=== PATIENT | male | born 1975 | race Caucasian/White ===

== ENCOUNTER 2021-04-18 12:42 | Emergency (ER) | payer SELFPAY ==
[2021-04-18 14:17] LABS: Absolute Lymphocytes (CBC) 0.7 K/uL (0.7-4.9); Basophils % 0.3 % (0-1.3); Hematocrit 38.4 % (39.6-49.0); Lymphocytes % 6.3 % (15.3-44.8); MPV 7.6 fL (7.6-11.3); RBC Red Blood Cell Count 3.89 M/uL (4.33-5.43)
[2021-04-18 14:20] LABS: Protime INR 1.02
[2021-04-18 14:48] LABS: ALT/SGPT 32 U/L (12-78); Albumin 3.9 g/dL (3.4-5.0); Alkaline Phosphatase 71 U/L (45-117); BUN Blood Urea Nitrogen 8 mg/dL (7-18); Bicarbonate 23 mmol/L (21-32); Bilirubin Direct < 0.1 mg/dL (0-0.2); Bilirubin Total 0.3 mg/dL (0.2-1.0); Creatine Phosphokinase 104 U/L (39-308); Glucose Level 121 mg/dL (74-106); Sodium Level 139 mmol/L (136-145); Troponin I < 0.02 ng/mL (0.0-0.045)
[2021-04-18 14:49] LABS: AST/SGOT 28 U/L (15-37); Potassium 3.9 mmol/L (3.5-5.1)
[2021-04-18 15:27] LABS: Platelet Estimate ADEQ; White Blood Cell Scan OK (OK)
[2021-04-18 15:28] LABS: Blood Morphology Comment NOT SEEN (NOT SEEN)
[2021-04-18] MEDS ORDERED: NA CHLORIDE 0.9% 1,000 ML ONE (16:18)
--- NOTE | 2021-04-18 18:15 | ER ---
Nurse's Notes [facility] Name: Phu Marshall Age: 45 yrs Sex: Male : 1975 Arrival Date: 04/18/2021 Time: 12:43 Bed 28 Private MD: Diagnosis: Other psychoactive substance abuse Presentation: 04/18 12:51 Chief complaint: EMS states: was found sitting outside [facility], pt stated he iw took ten codeine pills because the sign maker were making him anxious. Coronavirus screen: At this time, the client does not indicate any symptoms associated with coronavirus-19. Ebola Screen: Patient negative for fever greater than or equal to 101.5 degrees Fahrenheit, and additional compatible Ebola Virus Disease symptoms Patient denies exposure to infectious person. Patient denies travel to an Ebola-affected area in the 21 days before illness onset. No symptoms or risks identified at this time. Initial Sepsis Screen: Does the patient meet any 2 criteria? No. Patient's initial sepsis screen is negative. Does the patient have a suspected source of infection? No. Patient's initial sepsis screen is negative. Risk Assessment: Do you want to hurt yourself or someone else? Patient reports no desire to harm self or others. Onset of symptoms was April 18, 2021. 12:51 Method Of Arrival: EMS: [facility] iw 12:51 Acuity: LAWRENCE 3 iw Triage Assessment: 18:00 General: Appears in no apparent distress. Behavior is calm, cooperative. iw Historical: - Allergies: 12:53 No Known Allergies; iw - Home Meds: 12:53 None [Active]; iw - PMHx: 12:53 None; iw - PSHx: 12:53 None; iw - Immunization history:: Adult Immunizations unknown. - Social history:: Smoking status: unknown. Screenin:42 Abuse screen: Denies threats or abuse. Denies injuries from another. Nutritional iw screening: No deficits noted. Tuberculosis screening: No symptoms or risk factors identified. Fall Risk None identified. Assessment: 13:00 General: Appears in no apparent distress. Pain: Denies pain. Neuro: Level of iw Consciousness is obeys commands, Oriented to person, place, time, Moves all extremities. Full function. Cardiovascular: Patient's skin is warm and dry. Respiratory: Respiratory effort is even, unlabored, Respiratory pattern is regular. GI: Abdomen is flat, non-distended. Derm: Skin is intact, is healthy with good turgor. Musculoskeletal: Range of motion: intact in all extremities. 13:49 Reassessment: Patient appears in no apparent distress at this time. iw 18:42 Reassessment: Patient appears in no apparent distress at this time. Patient and/or iw family updated on plan of care and expected duration. Pain level reassessed. Patient is alert, oriented x 3, equal unlabored respirations, skin warm/dry/pink. Patient states feeling better. Patient states symptoms have improved. Vital Signs: 13:48 BP 151 / 101; Pulse 79; Resp 16; Pulse Ox 97% on R/A; iw 18:43 BP 128 / 79; Pulse 67; Resp 16; Pulse Ox 98% on R/A; iw ED Course: 12:43 Patient arrived in ED. iw 12:51 No provider procedures requiring assistance completed. Maintain EMS IV. Dressing iw intact. Good blood return noted. Site clean \T\ dry. Gauge \T\ site: 18 gauge, LAC. 12:52 Triage completed. iw 12:53 Arm band placed on. iw 13:00 Patient has correct armband on for positive identification. iw 13:42 Ainsley Leslie RN is Primary Nurse. iw 13:43 Juan Cancino PA is PHCP. cp 13:43 Juan Caal MD is Attending Physician. cp 18:42 IV discontinued, intact, bleeding controlled, No redness/swelling at site. Pressure iw dressing applied. Administered Medications: 14:00 Drug: NS 0.9% 1000 ml Route: IV; Rate: 1 bolus; Site: left antecubital; iw 15:00 Follow up: IV Status: Completed infusion iw 15:33 Drug: NS 0.9% 1000 ml Route: IV; Rate: 1 bolus; Site: left antecubital; iw Outcome: 18:15 Discharge ordered by . cp 18:42 Discharged to home ambulatory. iw 18:42 Condition: good 18:42 Discharge instructions given to patient, Instructed on discharge instructions, follow up and referral plans. Demonstrated understanding of instructions, follow-up care. 18:43 Patient left the ED. iw Signatures: Ainsley Leslie RN RN iw Juan Cancino PA PA cp
--- NOTE | 2021-04-18 18:15 | EDPHYS ---
Physician Documentation [facility] Name: Phu Marshall Age: 45 yrs Sex: Male : 1975 Arrival Date: 04/18/2021 Time: 12:43 Bed 28 Private MD: ED Physician Juan Caal HPI: 04/18 13:45 This 45 yrs old Male presents to ER via EMS with complaints of Heat Exposure, cp Drug Abuse. 13:45 The patient presents to the emergency department after a known overdose, that was cp intentional. Context: Method: the patient has a confirmed or suspected ingestion, codeine, Time: the patient's OD/poisoning occurred at an unknown time. 13:45 Associated signs and symptoms: Pertinent positives: decreased level of consciousness. cp 13:45 Patient reports ingesting approximately 10 tablets of tylenol with codeine today cp because he became nervous by the presence of police. Historical: - Allergies: 12:53 No Known Allergies; iw - Home Meds: 12:53 None [Active]; iw - PMHx: 12:53 None; iw - PSHx: 12:53 None; iw - Immunization history:: Adult Immunizations unknown. - Social history:: Smoking status: unknown. ROS: 13:50 Constitutional: Negative for body aches, chills, fever, poor PO intake. cp 13:50 Eyes: Negative for injury, pain, redness, and discharge. cp 13:50 Cardiovascular: Negative for chest pain. 13:50 Respiratory: Negative for cough, shortness of breath, wheezing. 13:50 Abdomen/GI: Negative for abdominal pain, nausea, vomiting, and diarrhea. 13:50 Neuro: Negative for altered mental status, dizziness, headache, loss of consciousness, syncope, weakness. 13:50 All other systems are negative. Exam: 13:52 Head/Face: Normocephalic, atraumatic. cp 13:52 Constitutional: The patient appears in no acute distress, alert, awake, non-diaphoretic, non-toxic, well developed, well nourished. 13:52 Eyes: Periorbital structures: appear normal, Pupils: equal, round, and reactive to cp light and accomodation, Extraocular movements: intact throughout, Conjunctiva: normal, no exudate, no injection, Sclera: no appreciated abnormality, Lids and lashes: appear normal, bilaterally. 13:52 ENT: External ear(s): are unremarkable, Ear canal(s): are normal, clear, TM's: dullness, bilaterally, Nose: is normal, Mouth: Lips: moist, Oral mucosa: moist, Posterior pharynx: Airway: no evidence of obstruction, patent. 13:52 Neck: ROM/movement: is normal, is supple, no meningismus, no nuchal rigidity. 13:52 Chest/axilla: Inspection: normal, Palpation: is normal, no crepitus, no tenderness. 13:52 Cardiovascular: Rate: normal, Rhythm: regular, Edema: is not appreciated, JVD: is not appreciated. 13:52 Respiratory: the patient does not display signs of respiratory distress, Respirations: normal, no use of accessory muscles, no retractions, labored breathing, is not present, Breath sounds: are clear throughout, no decreased breath sounds. 13:52 Abdomen/GI: Inspection: abdomen appears normal, Palpation: abdomen is soft and non-tender, in all quadrants. 13:52 Neuro: Orientation: to person, place \T\ time. Mentation: able to follow commands, slow to respond, Motor: moves all fours, strength is normal. 14:47 ECG was reviewed by the Attending Physician. Vital Signs: 13:48 BP 151 / 101; Pulse 79; Resp 16; Pulse Ox 97% on R/A; iw 18:43 BP 128 / 79; Pulse 67; Resp 16; Pulse Ox 98% on R/A; iw MDM: 13:44 Patient medically screened. socorro 14:00 Differential diagnosis: over medication, intracranial hemorrhage. cp 18:15 Data reviewed: vital signs, nurses notes, lab test result(s), EKG, and as a result, I cp will discharge patient. 18:15 Counseling: I had a detailed discussion with the patient and/or guardian regarding: the cp historical points, exam findings, and any diagnostic results supporting the discharge/admit diagnosis, lab results, to return to the emergency department if symptoms worsen or persist or if there are any questions or concerns that arise at home. Response to treatment: the patient's symptoms have markedly improved after treatment, and as a result, I will discharge patient. 04/18 13:43 Order name: Acetaminophen; Complete Time: 14:58 cp 04/18 13:43 Order name: Basic Metabolic Panel; Complete Time: 14:58 cp 04/18 15:37 Interpretation: Normal except: GLUC 121; GFR 64. cp 04/18 13:43 Order name: CBC with Diff; Complete Time: 15:35 cp 04/18 15:37 Interpretation: Normal except: WBC 11.20; RBC 3.89; HGB 13.2; HCT 38.4; FAM% 86.8; LYM% cp 6.3; NEUT A 9.7. 04/18 13:43 Order name: ETOH Level; Complete Time: 14:58 cp 04/18 13:43 Order name: Hepatic Function; Complete Time: 14:58 cp 04/18 15:37 Interpretation: Normal except: GLOB 4.1; A/G 1.0. cp 04/18 13:43 Order name: PT-INR; Complete Time: 14:58 cp 04/18 13:43 Order name: Ptt, Activated; Complete Time: 14:58 cp 04/18 13:43 Order name: Salicylate cp 04/18 13:43 Order name: CK; Complete Time: 14:58 cp 04/18 13:43 Order name: Troponin I; Complete Time: 14:58 cp 04/18 15:28 Order name: CBC Smear Scan; Complete Time: 15:35 EDMS 04/18 13:43 Order name: EKG; Complete Time: 13:44 cp 04/18 13:43 Order name: EKG - Nurse/Tech; Complete Time: 14:41 cp 04/18 13:43 Order name: IV Saline Lock; Complete Time: 14:27 cp 04/18 13:43 Order name: Labs collected and sent; Complete Time: 14:27 cp 04/18 13:43 Order name: Urine Dipstick-Ancillary (obtain specimen); Complete Time: 08:33 cp 04/18 17:52 Order name: Diet Regular; Complete Time: 17:52 cp EC:47 Rate is 71 beats/min. Rhythm is regular. SD interval is normal. QRS interval is normal. cp QT interval is normal. T waves are Inverted in leads aVR, V2. Interpreted by me. Reviewed by me. Administered Medications: 14:00 Drug: NS 0.9% 1000 ml Route: IV; Rate: 1 bolus; Site: left antecubital; iw 15:00 Follow up: IV Status: Completed infusion iw 15:33 Drug: NS 0.9% 1000 ml Route: IV; Rate: 1 bolus; Site: left antecubital; iw Disposition: 04/18/21 18:15 Discharged to Home. Impression: Other psychoactive substance abuse. - Condition is Stable. - Discharge Instructions: Drug Overdose. - Medication Reconciliation Form, Thank You Letter, Antibiotic Education, Prescription Opioid Use form. - Follow up: Private Physician; When: 1 - 2 days; Reason: Recheck today's complaints. - Problem is new. - Symptoms have improved. Addendum: 04/19/2021 21:10 Co-signature as Attending Physician, Juan Caal MD I agree with the assessment and c flores plan of care. Signatures: Dispatcher [employer] EDJuan Leon MD MD cha Williams, Irene, RN RN iw Juan Cancino PA PA cp Corrections: (The following items were deleted from the chart) 04/18 14:27 13:43 Suicide Screening ([place]) ordered. cp iw 18:42 16:35 Chávez ordered. cp iw 18:43 18:15 04/18/2021 18:15 Discharged to Home. Impression: Other psychoactive substance iw abuse. Condition is Stable. Forms are Medication Reconciliation Form, Thank You Letter, Antibiotic Education, Prescription Opioid Use. Follow up: Private Physician; When: 1 - 2 days; Reason: Recheck today's complaints. Problem is new. Symptoms have improved. 04/19 15:30 09:22 Constitutional: Negative for body aches, chills, fever, poor PO intake, cp cp :24 07:22 Eyes: Negative for injury, pain, redness, and discharge, cp cp :24 07:22 ENT: Negative for ear pain, sore throat, difficulty swallowing, difficulty cp handling secretions, cp : 09:22 Cardiovascular: Positive for chest pain, Negative for edema, palpitations, cp cp : 09:22 Respiratory: Negative for cough, shortness of breath, wheezing, cp cp : 09:22 Abdomen/GI: Negative for abdominal pain, nausea, vomiting, and diarrhea, cp cp : 09:22 Back: Negative for radiated pain, cp cp : 09:22 Neuro: Negative for altered mental status, headache, numbness, weakness, cp cp :30 09:22 Skin: Negative for cellulitis, rash, cp cp 15:30 09:22 All other systems are negative, cp cp 15:31 15:30 Constitutional: Negative for cp cp 15:34 09:22 Constitutional: The patient appears in no acute distress, alert, awake, cp non-diaphoretic, non-toxic, well developed, well nourished, cp 15:34 09:22 Head/Face: Normocephalic, atraumatic. cp cp 15:34 09:22 Eyes: Periorbital structures: appear normal, Pupils: equal, round, and reactive cp to light and accomodation, Extraocular movements: intact throughout, Conjunctiva: normal, Sclera: Lids and lashes: appear normal, bilaterally, cp 15:34 09:22 ENT: External ear(s): are unremarkable, Nose: is normal, Mouth: Lips: moist, Oral cp mucosa: moist, Posterior pharynx: Airway: no evidence of obstruction, patent, cp 15: 09:22 Neck: ROM/movement: pain, is not appreciated, limited range of motion, is not cp appreciated, cp 15: 09:22 Chest/axilla: Inspection: normal, Palpation: is normal, no crepitus, no cp tenderness, cp 15:34 09:22 Cardiovascular: Rate: normal, Rhythm: regular, Edema: is not appreciated, JVD: is cp not appreciated, cp 15: 09:22 Respiratory: the patient does not display signs of respiratory distress, cp Respirations: normal, no use of accessory muscles, no retractions, labored breathing, is not present, Breath sounds: are clear throughout, no decreased breath sounds, no stridor, no wheezing, cp 15:34 09:22 Abdomen/GI: Inspection: abdomen appears normal, Palpation: abdomen is soft and cp non-tender, in all quadrants, cp 15: 09:22 Back: pain, is absent, ROM is normal, cp cp 15:34 09:22 Neuro: Orientation: to person, place \T\ time. Mentation: is normal, Motor: moves cp all fours, strength is normal, cp
[2021-04-18 18:49] VITALS: BP 128/79; O2SAT 98
--- NOTE | 2021-04-19 06:58 | EKG ---
Test Date: 2021-04-18 Test Time: 14:40:13 Mercury Washer: TABITHA MEASUREMENT RESULTS: Intervals: Rate: 71 CA: 172 QRSD: 96 QT: 404 QTc: 439 [place]: P: 64 CA: 172 QRS: -9 T: 42 INTERPRETIVE STATEMENTS: Normal sinus rhythm with sinus arrhythmia Possible Left atrial enlargement Borderline ECG No previous ECG available for comparison Electronically Signed On 04-19-21 06:56:23 CDT by Moses Bass
== END 2021-04-18 18:43 | disposition home or self-care (01) ==
LOC: ER 12:42
DX: T40.2X1A Poisoning by other opioids, accidental (unintentional), initial encounter (principal)
CPT/HCPCS: 36415; 80048; 80076; 80320; 80329; 82550; 84484; 85025; 85610; 85730; 93005; 96360; 99283; J7030

== ENCOUNTER 2022-02-20 09:45 | Emergency (ER) | payer SELFPAY ==
[2022-02-20] MEDS ORDERED: KETOROLAC 30 MG/ML INJ ONE (10:21)
[2022-02-20] MEDS ORDERED: dexAMETHasone 10 MG/ML VIAL ONE (10:21)
--- NOTE | 2022-02-20 11:07 | RAD REPORT ---
EXAM DESCRIPTION: RAD - Lumbar Spine 3 Views - 02/20/2022 10:50 am CLINICAL HISTORY: back pain Radiculopathy COMPARISON: No comparisons FINDINGS: Vertebral body heights appear maintained. No compression fracture noted. Mild disc thinnin g throughout the lumbar spine. No spondylolysis or spondylolisthesis. IMPRESSION: No acute process suspected.
--- NOTE | 2022-02-20 11:38 | ER ---
Nurse's Notes [facility] Name: Phu Marshall Age: 46 yrs Sex: Male : 1975 Arrival Date: 02/20/2022 Time: 09:46 Bed 24 Private MD: Iván Galloway E Diagnosis: Low back pain Presentation: 02/20 09:54 Chief complaint: Patient states: on Wednesday he picked up a box and 30 minutes later his iw back seized up on him, now he feels like his vertebra are moving around. Coronavirus screen: At this time, the client does not indicate any symptoms associated with coronavirus-19. Ebola Screen: Patient negative for fever greater than or equal to 101.5 degrees Fahrenheit, and additional compatible Ebola Virus Disease symptoms Patient denies exposure to infectious person. Patient denies travel to an Ebola-affected area in the 21 days before illness onset. No symptoms or risks identified at this time. Initial Sepsis Screen: Does the patient meet any 2 criteria? No. Patient's initial sepsis screen is negative. Does the patient have a suspected source of infection? No. Patient's initial sepsis screen is negative. Risk Assessment: Do you want to hurt yourself or someone else? Patient reports no desire to harm self or others. Onset of symptoms was February 17, 2022. 09:54 Method Of Arrival: Ambulatory iw 09:54 Acuity: LAWRENCE 4 iw Historical: - Allergies: 09:57 No Known Allergies; iw - Home Meds: 09:57 None [Active]; iw - PMHx: 09:57 None; iw - PSHx: 09:57 None; iw - Immunization history:: Client reports having NOT received the Covid vaccine. - Social history:: Smoking status: Patient denies any tobacco usage or history of. Screenin:13 Abuse screen: Denies threats or abuse. Denies injuries from another. Nutritional ab2 screening: No deficits noted. Tuberculosis screening: No symptoms or risk factors identified. Fall Risk None identified. Assessment: 10:08 General: Appears in no apparent distress. comfortable, Behavior is calm, cooperative, ab2 appropriate for age. Pain: Complains of pain in low back area. Neuro: Level of Consciousness is awake, alert, obeys commands, Oriented to person, place, time, situation, Appropriate for age Rug Receiving Clerk are equal bilaterally Moves all extremities. Gait is steady. Cardiovascular: No deficits noted. Denies chest pain, shortness of breath, Heart tones S1 S2 present Patient's skin is warm and dry. Respiratory: Airway is patent Respiratory effort is even, unlabored, Respiratory pattern is regular, symmetrical, Breath sounds are clear bilaterally. GI: No deficits noted. No signs and/or symptoms were reported involving the gastrointestinal system. : No deficits noted. Musculoskeletal: Reports pain in low back area. 10:35 Reassessment: Pt to xray department with hardware technician via stretcher. family remains in ab2 room. 11:18 Reassessment: No changes from previously documented assessment. Patient and/or family bp updated on plan of care and expected duration. Pain level reassessed. Vital Signs: 09:54 BP 138 / 91; Pulse 87; Resp 16; Temp 98.0; Pulse Ox 97% on R/A; Weight 113.4 kg; Height iw 6 ft. 9 in. (205.74 cm); Pain 8/10; 11:17 BP 132 / 93; Pulse 63; Resp 16; Pulse Ox 94% ; bp 09:54 Body Mass Index 26.79 (113.40 kg, 205.74 cm) iw ED Course: 09:46 Patient arrived in ED. am2 09:46 Iván Galloway MD is Private Physician. am2 09:49 Guillermo Bui is Primary Nurse. ab2 09:49 [facility]gron [facility]. jmm 09:49 Bereket Ortiz MD is Attending Physician. jmm 09:57 Triage completed. iw 09:58 Arm band placed on. iw 10:13 No provider procedures requiring assistance completed. ab2 10:14 Patient has correct armband on for positive identification. Bed in low position. Call ab2 light in reach. Side rails up X2. 10:52 Lumbar Spine (3 Views) XRAY In Process Unspecified. EDMS 11:44 Patient did not have IV access during this emergency room visit. ab2 Administered Medications: 10:20 Drug: Ketorolac 30 mg Route: IM; Site: left vastus lateralis; ab2 11:44 Follow up: Response: No adverse reaction ab2 10:20 Drug: Decadron (dexamethasone) 10 mg Route: IM; Site: left vastus lateralis; ab2 11:44 Follow up: Response: No adverse reaction ab2 Outcome: 11:37 Discharge ordered by . bassem 11:43 Discharged to home ambulatory, with family. ab2 11:43 Condition: good 11:43 Discharge instructions given to patient, family, Instructed on discharge instructions, follow up and referral plans. medication usage, Demonstrated understanding of instructions, follow-up care, medications, Prescriptions given X 2. 11:44 Patient left the ED. ab2 Signatures: Dispatcher [employer] EDMS Chaz Negron PA PA jmm Williams, Irene, RN RN Katy Stiles Brian, KIMBERLY RN Guillermo Kaur ab2
--- NOTE | 2022-02-20 11:38 | EDPHYS ---
Physician Documentation [facility] Name: Phu Marshall Age: 46 yrs Sex: Male : 1975 Arrival Date: 02/20/2022 Time: 09:46 Bed 24 Private MD: Iván Galloway E ED Physician Bereket Ortiz HPI: 02/20 10:05 This 46 yrs old Male presents to ER via Ambulatory with complaints of Back Pain. jmm 10:05 The patient presents with pain that is acute. Onset: The symptoms/episode jmm began/occurred acutely, 2 day(s) ago. The pain does not radiate. This is a 46-year-old male no [place] conditions presents emerged part with complaints of lower back pain beginning after lifting a heavy object approximately 2 days ago. Patient states the pain is mainly on the right lower back. Denies radiation of pain down the leg. Denies bowel or urinary issues. Denies weakness or numbness to the extremities. Denies abdominal pain. Historical: - Allergies: 09:57 No Known Allergies; iw - Home Meds: 09:57 None [Active]; iw - PMHx: 09:57 None; iw - PSHx: 09:57 None; iw - Immunization history:: Client reports having NOT received the Covid vaccine. - Social history:: Smoking status: Patient denies any tobacco usage or history of. ROS: 10:05 Constitutional: Negative for fever, chills, and weight loss, Cardiovascular: Negative jmm for chest pain, palpitations, and edema, Respiratory: Negative for shortness of breath, cough, wheezing, and pleuritic chest pain. 10:05 Back: Positive for pain with movement. 10:05 All other systems are negative. Exam: 10:05 Constitutional: This is a well developed, well nourished patient who is awake, alert, jmm and in no acute distress. Head/Face: atraumatic. Eyes: EOMI, no conjunctival erythema appreciated ENT: Moist Mucus Membranes Neck: Trachea midline, Supple Chest/axilla: Normal chest wall appearance and motion. Cardiovascular: Regular rate and rhythm. No edema appreciated Respiratory: Normal respirations, no respiratory distress appreciated Abdomen/GI: Non distended, soft 10:05 Back: Right lower lumbar paraspinal muscle spasm appreciated, no midline tenderness appreciated full range of motion appreciated. 10:05 Skin: Appearance: Color: normal in color. 10:05 Neuro: Orientation: is normal, Mentation: is normal, Memory: is normal. 10:05 Psych: Behavior/mood is pleasant, cooperative. Vital Signs: 09:54 BP 138 / 91; Pulse 87; Resp 16; Temp 98.0; Pulse Ox 97% on R/A; Weight 113.4 kg; Height iw 6 ft. 9 in. (205.74 cm); Pain 8/10; 11:17 BP 132 / 93; Pulse 63; Resp 16; Pulse Ox 94% ; bp 09:54 Body Mass Index 26.79 (113.40 kg, 205.74 cm) iw MDM: 10:05 Patient medically screened. [facility] 11:37 Data reviewed: vital signs, nurses notes. Counseling: I had a detailed discussion with bassem the patient and/or guardian regarding: the historical points, exam findings, and any diagnostic results supporting the discharge/admit diagnosis, radiology results, the need for outpatient follow up, to return to the emergency department if symptoms worsen or persist or if there are any questions or concerns that arise at home. ED course: Patient is alert nontoxic in appearance in the ED. I do not suspect cord compression or cauda equina. Patient advised follow-up PCP and otherwise given strict return precautions. Patient understood agrees plan of care.. 02/20 10:12 Order name: Lumbar Spine (3 Views) XRAY; Complete Time: 11:14 [facility] Administered Medications: 10:20 Drug: Ketorolac 30 mg Route: IM; Site: left vastus lateralis; ab2 11:44 Follow up: Response: No adverse reaction ab2 10:20 Drug: Decadron (dexamethasone) 10 mg Route: IM; Site: left vastus lateralis; ab2 11:44 Follow up: Response: No adverse reaction ab2 Disposition: 16:29 Co-signature as Attending Physician, Bereket Ortiz MD I agree with the assessment and kdr plan of care. Disposition Summary: 02/20/22 11:37 Discharge Ordered Location: Home [facility] Condition: Stable [facility] Diagnosis - Low back pain [facility] Followup: [facility] - With: Private Physician - When: 2 - 3 days - Reason: Recheck today's complaints, Continuance of care, Re-evaluation by your physician Discharge Instructions: - Discharge Summary Sheet [facility] - Acute Back Pain, Adult [facility] Forms: - Medication Reconciliation Form jmm - Work release form jmm - Thank You Letter jm - Antibiotic Education [facility] - Prescription Opioid Use [facility] Prescriptions: - Zanaflex 4 mg Oral Tablet - take 1 tablet by ORAL route every 8 hours As needed; 20 tablet; Refills: 0, jmm Product Selection Permitted - Diclofenac Sodium 75 mg Oral Tablet Sustained Release - take 1 tablet by ORAL route 2 times per day; 30 tablet; Refills: 0, Product [facility] Selection Permitted Signatures: Dispatcher [employer] Bereket López MD MD kdr Mickail, Joel, PA PA jmm Williams, Irene, RN RN Guillermo Gonzalez
[2022-02-20 11:52] VITALS: TEMP 98
[2022-02-20 11:54] VITALS: BP 132/93; O2SAT 94
== END 2022-02-20 11:44 | disposition home or self-care (01) ==
LOC: ER 09:45
DX: M54.50 Low back pain, unspecified (principal)
CPT/HCPCS: 72100; 96372; 99283; J1100

== ENCOUNTER 2023-04-20 10:08 | Emergency (ER) | payer SELFPAY ==
[2023-04-20] MEDS ORDERED: LIDOCAINE 1% MPF 5 ML VIAL ONE (10:39)
[2023-04-20] MEDS ORDERED: CEFTRIAXONE 1000 MG/VIAL ONE (10:43)
[2023-04-20 11:04] LABS: Absolute Lymphocytes (CBC) 1.4 K/uL (0.7-4.9); Hematocrit 40.6 % (39.6-49.0); Lymphocytes % 7.9 % (15.3-44.8); MCV 100.7 fL (80-100); RBC Red Blood Cell Count 4.03 M/uL (4.33-5.43)
[2023-04-20] MEDS ORDERED: FENTANYL CITR 100 MCG/2 ML ONE (11:07)
--- NOTE | 2023-04-20 11:17 | RAD REPORT ---
EXAM DESCRIPTION: RAD - Foot Left 3 View - 04/20/2023 11:10 am CLINICAL HISTORY: puncture wound w abscess on dorsum COMPARISON: No comparisons FINDINGS: Moderate soft tissue swelling is seen along the dorsum of the foot. Small 2 cm collection of subcutaneous gas is present in the region. A radiopaque foreign body is not seen. No acute fractur e evident. No aggressive bony lesion.
[2023-04-20 11:21] LABS: Albumin 3.9 g/dL (3.4-5.0); Bilirubin Total 1.3 mg/dL (0.2-1.0); Potassium 3.7 mEq/L (3.5-5.1); Protein, Total 8.9 g/dL (6.4-8.2)
[2023-04-20] MEDS ORDERED: VANCOMYCIN 2 GM in NA CHLORIDE 0.9% 500 ML IVPB ONE (12:00)
[2023-04-20 12:03] LABS: Blood Morphology Comment NOT SEEN (NOT SEEN); Platelet Estimate ADEQ; White Blood Cell Scan OK (OK)
--- NOTE | 2023-04-20 12:35 | EDPHYS ---
Physician Documentation [facility] Name: Phu Marshall Age: 47 yrs Sex: Male : 1975 Arrival Date: 04/20/2023 Time: 10:08 Bed 17 Private MD: ED Physician Delon Liu HPI: 04/20 10:24 This 47 yrs old black Male presents to ER via Unassigned with complaints of Foot Injury.bs3 10:24 Patient notes that he had a door closed on the top of his foot last week and since then bs3 he has had increased swelling and pain he noticed an ulcer that developed on the dorsum of his foot he denies fevers chills or any other symptoms he notes that the swelling has been progressive over time and started as a red dot he does not think there was initial clot in the skin. Historical: - Allergies: 10:24 No Known Allergies; ld1 - PMHx: 10:24 None; ld1 - PSHx: 10:24 None; ld1 - Immunization history:: Adult Immunizations up to date. - Social history:: Smoking status: Patient denies any tobacco usage or history of. Patient/guardian denies using alcohol. ROS: 10:24 Constitutional: Negative for fever, chills Eyes: Negative for injury, pain, redness, bs3 and discharge, ENT: Negative for injury, pain, and discharge. 10:24 All other systems are negative. Exam: 10:24 Constitutional: This is a well developed, well nourished patient who is awake, alert, bs3 and in no acute distress. Head/Face: Normocephalic, atraumatic. Eyes: Pupils equal round and reactive to light, extra-ocular motions intact. Lids and lashes normal. Neck: Trachea midline, no thyromegaly, no neck stiffness Cardiovascular: Regular rate and rhythm with a normal S1 and S2. symmetric pulses in upper extremities Respiratory: Lungs have equal breath sounds bilaterally, clear to auscultation, no respiratory distress Abdomen/GI: Soft, non-tender, no rebound or guarding MS/ Extremity: He has distal diffuse swelling of the dorsum of his right foot with erythema are surrounding a 2 cm necrotic lesion there is a small amount of purulent/sanguinous discharge from the wound when expressed Neuro: Awake and alert, GCS 15, oriented to person, place, time, and situation. Cranial nerves II-XII grossly intact. Motor strength 5/5 in all extremities. Sensory grossly intact. Psych: Awake, alert, with orientation to person, place and time. Behavior, mood, and affect are within normal limits. Vital Signs: 10:24 BP 135 / 97; Pulse 81; Resp 18; Temp 98.3; Pulse Ox 98% on R/A; Pain 8/10; ld1 10:24 BP 135 / 97; Pulse 88; Resp 17; Temp 98.3(TE); Pulse Ox 97% on R/A; Weight 117.93 kg; ss Height 6 ft. 9 in. ; Pain 8/10; 11:09 BP 131 / 85; Pulse 70; Resp 18; Pulse Ox 96% on R/A; ld1 10:24 Body Mass Index 27.86 (117.93 kg, 205.74 cm) ss 10:24 Pain Scale: Adult ld1 10:24 Pain Scale: Adult ss Procedures: 10:44 I \T\ D: Incision and drainage was performed for an abscess of the right Prepped with bs3 Chlorhexidine. Anesthetized with 5 ml's 1% Lidocaine. Incised with #11 blade. Drained moderate amount purulent fluid. Packed with Dressing: the patient tolerated the procedure. MDM: 10:11 Patient medically screened. bs3 10:24 Data reviewed: vital signs, nurses notes. ED course: Patient with likely foot infection bs3 will evaluate for foreign body will evaluate for osteomyelitis will do local lidocaine and attempt small incision and drainage to remove purulent discharge his vitals are normal will consider trial on oral antibiotics after shared decision-making conversation versus inpatient antibiotics. 10:56 ED course: Using ultrasound confirmed a moderate-sized pocket with surrounding bs3 cobblestoning consistent with an abscess/cellulitis I did an incision and drainage with a moderate amount of purulent discharge expressed we will start on antibiotics it is likely MRSA. 11:20 ED course: X-ray consistent with abscess that had already been drained no foreign body bs3 will start on antibiotics discharge home very strict return precautions given. 04/20 10:24 Order name: CBC with Diff; Complete Time: 12:04 bs3 04/20 10:24 Order name: Comprehensive Metabolic Panel; Complete Time: 12:04 bs3 04/20 10:24 Order name: Wound Culture; Complete Time: 13:08 bs3 04/20 11:06 Order name: CBC Smear Scan; Complete Time: 12:04 EDMS 04/20 10:24 Order name: Foot Left 3 View XRAY; Complete Time: 11:20 bs3 Administered Medications: 10:55 Drug: Lidocaine Infiltration (1 %) 5 ml {Note: administered by Dr. Liu..} Volume: 20 ld1 ml; Route: Infiltration; 10:55 Drug: Rocephin IV 1 grams Route: IV; Rate: 1 bolus; Site: right antecubital; ld1 11:04 Drug: fentaNYL (PF) IVP 50 mcg Route: IVP; Site: left antecubital; ld1 11:21 Drug: vancoMYCIN IVPB 20 mg/kg Route: IVPB; Site: left antecubital; ld1 Disposition Summary: 04/20/23 12:34 Discharge Ordered Location: Home bs3 Problem: new bs3 Symptoms: have improved bs3 Condition: Fair bs3 Diagnosis - cellulitis and abscess of right foot bs3 Followup: bs3 - With: Emergency Department - When: 2 - 3 days - Reason: Recheck today's complaints Followup: bs3 - With: Private Physician - When: 1 week - Reason: Re-evaluation by your physician Discharge Instructions: - Discharge Summary Sheet bs3 - Cellulitis, Adult bs3 - Skin Abscess, [id number] bs3 Forms: - Medication Reconciliation Form bs3 - Thank You Letter bs3 - Antibiotic Education bs3 - Prescription Opioid Use bs3 - [email or web address] bs3 Prescriptions: - Clindamycin HCl 150 mg Oral Capsule - take 3 capsule by ORAL route every 6 hours for 10 days; 120 capsule; Refills: bs3 0, Product Selection Permitted Signatures: Dispatcher [employer] EDKaylen Navarro RN RN ld1 Delon Liu MD MD bs3
--- NOTE | 2023-04-20 12:35 | ER ---
Nurse's Notes [facility] Name: Phu Marshall Age: 47 yrs Sex: Male : 1975 Arrival Date: 04/20/2023 Time: 10:08 Bed 17 Private MD: Diagnosis: cellulitis and abscess of right foot Presentation: 04/20 10:24 Chief complaint: Patient states: Redness, swelling and pain noted to R foot. Pt reports ss that he slammed his foot last Wednesday and figured it was just bruised. Dime sized wound noted to top of foot. Coronavirus screen: Client denies travel out of the [place] in the last 14 days. Ebola Screen: Patient denies exposure to infectious person. Patient denies travel to an Ebola-affected area in the 21 days before illness onset. Initial Sepsis Screen: Does the patient meet any 2 criteria? No. Patient's initial sepsis screen is negative. Does the patient have a suspected source of infection? Yes: Skin breakdown/wound. Risk Assessment: Do you want to hurt yourself or someone else? Patient reports no desire to harm self or others. Onset of symptoms was April 13, 2023. 10:24 Method Of Arrival: Ambulatory ss 10:24 Acuity: [place] 3 ss Historical: - Allergies: 10:24 No Known Allergies; ld1 - PMHx: 10:24 None; ld1 - PSHx: 10:24 None; ld1 - Immunization history:: Adult Immunizations up to date. - Social history:: Smoking status: Patient denies any tobacco usage or history of. Patient/guardian denies using alcohol. Screenin:24 [facility] ED Fall Risk Assessment (Adult) History of falling in the last 3 months, ld1 including since admission No falls in past 3 months (0 pts). Abuse screen: Denies threats or abuse. Denies injuries from another. Nutritional screening: No deficits noted. Tuberculosis screening: No symptoms or risk factors identified. Assessment: 10:24 General: Appears in no apparent distress. comfortable, Behavior is calm, cooperative, ld1 appropriate for age. Pain: Complains of pain in right foot Pain does not radiate. Pain currently is 8 out of 10 on a pain scale. Quality of pain is described as throbbing, Pain began 2-3 days ago. Is continuous. Neuro: Level of Consciousness is awake, alert, obeys commands, Oriented to person, place, time, situation. Cardiovascular: Capillary refill < 3 seconds Patient's skin is warm and dry. Rhythm is sinus rhythm. Respiratory: Airway is patent Respiratory effort is even, unlabored. GI: Abdomen is flat, non-distended. : No signs and/or symptoms were reported regarding the genitourinary system. EENT: No signs and/or symptoms were reported regarding the EENT system. Derm: No signs and/or symptoms reported regarding the dermatologic system. Musculoskeletal: No signs and/or symptoms reported regarding the musculoskeletal system. Vital Signs: 10:24 BP 135 / 97; Pulse 81; Resp 18; Temp 98.3; Pulse Ox 98% on R/A; Pain 8/10; ld1 10:24 BP 135 / 97; Pulse 88; Resp 17; Temp 98.3(TE); Pulse Ox 97% on R/A; Weight 117.93 kg; ss Height 6 ft. 9 in. ; Pain 8/10; 11:09 BP 131 / 85; Pulse 70; Resp 18; Pulse Ox 96% on R/A; ld1 10:24 Body Mass Index 27.86 (117.93 kg, 205.74 cm) ss 10:24 Pain Scale: Adult ld1 10:24 Pain Scale: Adult ss ED Course: 10:10 Patient arrived in ED. rg4 10:11 Delon Liu MD is Attending Physician. bs3 10:20 Kaylen Arauz, KIMBERLY is Primary Nurse. ld1 10:24 Patient has correct armband on for positive identification. Placed in gown. Bed in low ld1 position. Call light in reach. Side rails up X2. Pulse ox on. NIBP on. Door closed. Noise minimized. Warm blanket given. 10:24 Arm band placed on right wrist. ss 10:24 No provider procedures requiring assistance completed. ld1 10:27 Triage completed. ss 10:52 Inserted saline lock: 20 gauge in left antecubital area, using aseptic technique. ld1 ,using aseptic technique. ED STAFF Blood collected. 10:55 Wound Culture Sent. ld1 10:55 Comprehensive Metabolic Panel Sent. ld1 10:55 CBC with Diff Sent. ld1 11:12 Foot Left 3 View XRAY In Process Unspecified. EDMS 13:37 IV discontinued, intact, bleeding controlled, No redness/swelling at site. ld1 Administered Medications: 10:55 Drug: Lidocaine Infiltration (1 %) 5 ml {Note: administered by Dr. Liu..} Volume: 20 ld1 ml; Route: Infiltration; 10:55 Drug: Rocephin IV 1 grams Route: IV; Rate: 1 bolus; Site: right antecubital; ld1 11:04 Drug: fentaNYL (PF) IVP 50 mcg Route: IVP; Site: left antecubital; ld1 11:21 Drug: vancoMYCIN IVPB 20 mg/kg Route: IVPB; Site: left antecubital; ld1 Medication: 13:37 VIS not applicable for this client. ld1 Outcome: 12:34 Discharge ordered by . bs3 13:37 Discharged to home via wheelchair. ld1 13:37 Condition: stable 13:37 Discharge instructions given to patient, family, Instructed on discharge instructions, follow up and referral plans. Demonstrated understanding of instructions, follow-up care, medications, Prescriptions given X 1. 13:37 Patient left the ED. ld1 Signatures: Dispatcher [employer] EDMS Christie Vivar, RN RN Kay Peres rg4 aKylen Arauz RN RN ld1 Delon Liu MD MD bs3
[2023-04-20 14:01] VITALS: TEMP 98.3
[2023-04-20 14:03] VITALS: BP 131/85; O2SAT 96
== END 2023-04-20 13:37 | disposition home or self-care (01) ==
LOC: ER 10:08
PROC: 0H9MXZZ Drainage of Right Foot Skin, External Approach (ICD-10-PCS; principal; 2023-04-20)
DX: L03.115 Cellulitis of right lower limb (principal)
CPT/HCPCS: 36415; 80053; 85025; 87070; 87205; J0696; J2001; J3010; J7040